=== PATIENT | male | born 1950 | race Two or more races ===

== ENCOUNTER 2021-07-16 12:24 | Outpatient (CLI) | payer MEDICARE, SELFPAY ==
[2021-07-16 13:03] LABS: Basophils Absolute Auto 0.1 K/mm3 (0.0-0.1); Basophils Percent Auto 0.9 % (0.2-1.2); Eosinophils Absolute Auto 0.3 K/mm3 (0-0.3); Eosinophils Percent Auto 3.3 % (0-4.4); Hematocrit 40.4 % (42.0-52.0); Hemoglobin 12.4 g/dL (14.0-18.0); Immature Granulocyte Absolute 0.02 K/mm3 (0.00-0.031); Immature Granulocyte Percent A 0.3 % (0-0.5); Lymphocytes Absolute Auto 3.08 K/mm3 (0.9-3.2); Lymphocytes Percent Auto 39.3 % (18.3-44.2); Mean Corpuscular HGB Conc 30.7 g/dl (32-36); Mean Corpuscular Hemoglobin 25.8 pg (26-34); Mean Platelet Volume 8.9 fl (7.4-10.4); Monocytes Absolute Auto 0.8 K/mm3 (0.1-0.6); Monocytes Percent Auto 9.7 % (2.6-8.5); Neutrophils Absolute Auto 3.6 K/mm3 (1.3-6.7); Neutrophils Percent Auto 46.5 % (45.5-73.1); Platelet Count Result 362 k/mm3 (150-375); Red Blood Count 4.81 M/mm3 (4.6-6.20); Red Cell Distribution Width 15.9 % (11.5-14.5); White Blood Count 7.8 K/mm3 (4.5-10.0)
[2021-07-16 13:24] LABS: Alanine Aminotransferase 22 U/L (4-50); Albumin Level 4.2 g/dL (3.5-5.1); Alkaline Phosphatase 64 U/L (38-126); Anion Gap 6 mmol/L (8-16); Aspartate Amino Transferase 37 U/L (17-59); Bilirubin,Total 0.4 mg/dL (0.2-1.3); Blood Urea Nitrogen 13 mg/dL (9-20); Calcium 10.3 mg/dL (8.4-10.2); Carbon Dioxide 28 mmol/L (22-30); Chloride 106 mmol/L (98-107); Estimated Glomerular Filt Rate > 60; Glucose 51 mg/dL (65-110); Potassium 3.8 mmol/L (3.4-5.0); Sodium 140 mmol/L (137-145)
== END 2021-07-16 12:25 | disposition home or self-care (01) ==
PROVIDERS: PCP Family Medicine; Visit Provider Surgery
DX: K40.90 Unilateral inguinal hernia, without obstruction or gangrene, not specified as recurrent (principal)
CPT/HCPCS: 36415; 80053; 85025

== ENCOUNTER 2021-07-19 00:46 | Day surgery (SDC) | payer MEDICARE, SELFPAY ==
[2021-07-16 08:27] VITALS: BMI 18.5
--- NOTE | 2021-07-16 08:53 | PC.NURSE ---
Report to the Outpatient Waiting Room, entrance under the green pavilion located off [facility], at time __10:00AM on date _07/19/21 . OR Time: __12:00PM . - You and your visitor will be asked a series of questions to screen for COVID 19 for your protection. - A mask is required within the hospital. Preoperative COVID Testing Requirements: BRING COVID VACCINATION DOCUMENTATION No COVID Test needed if: (proof is required; if not received patient will have Rapid Test prior to entry) - Patient has received COVID Vaccine at least 14 days prior to procedure date or - Patient has positive COVID test result within last 90 days of surgery date. COVID Test needed if above criteria is not met If not COVID vaccinated a COVID test must be conducted within 72 hours of surgery and patient is asked to isolate self from time of testing until procedure. You will go to the [facility] for your COVID testing. The [facility] site is located at the corner of [address] [facility]. You will only be called if COVID results are positive and your surgeon may reschedule your elective surgery date. Patients may have clear liquids (water, carbonated beverages, clear teas, apple juice) until 3 hours prior to surgery with a maximum of 20 ounces. - No food from midnight until time of surgery - Infants may have breast milk until 4 hours before surgery, infant formula 6 hours prior to surgery. - Children will be allowed to drink immediately following surgery. If applicable, please bring a bottle or sippy cup to assist with drinking. Juice, water, soda, and popsicles are readily available. For infants on formula, please bring formula the day of surgery. Pacifiers are allowed. Take the following medications with a SIP of water the morning of surgery: ___SYMBICORT INHALER AND ALBUTEROL INHALER NEEDED, GABAPENTIN AND HYDROCODONE NEEDED FOR PAIN Medications to discontinue per physician ___NONE Date to take last dose Please no make-up, nail azeri, hairspray, perfume, deodorant, or body powder the day of surgery. No jewelry (including any body piercings) or valuables the day of surgery, leave them at home. Please take a shower or bath the night before, or the morning of, surgery with an antibacterial soap. Wear comfortable, loose fitting clothing. Children are encouraged to wear pajamas. - Jewelry must be removed prior to entering the operating room. Rings and piercings that are not removed may be cut off. - The hospital will not accept responsibility for valuables. - Please leave all valuables, including medications, at home the day of surgery. TAKE HIBILENS SHOWER MORNING OF SURGERY If you are going home after surgery, a licensed concrete truck driver must drive you home. - NO public transportation without another adult. - We recommend that an adult stay with you for 24 hours following discharge. - We also recommend that you do not drive, make important decision, drink alcoholic beverages, or take any drugs that were not prescribed by your health care provider for at least 24 hours after your discharge time. For Pediatric surgeries, we recommend two adults accompany the child home (only one inside the building at this time). One visitor will be allowed to accompany the patient into the hospital. Patients visitor will be instructed to remain with patient at all times or leave the building. We will allow the visitor to come back to the postoperative area when patient is ready. Follow any additional instructions given to you from your surgeon. Telephone instructions given to __PATIENT and asked if any additional questions and then verbalized understanding. Patient advised to call surgeon office or pre surgery nurse liaison [phone] if any additional questions.
--- NOTE | 2021-07-16 13:49 | PC.NURSE ---
07/16/21 1345 LAB CALLED WITH CRITICAL LOW GLUCOSE LEVEL, DRAWN TODAY AT 1251. GLUCOSE= 51. PT CALLED, HE STATES HE HAD BEEN FASTING FOR BLOOD WORK EXCEPT FOR CUP OF COFFEE AND 1/4 TEASPOON SUGAR THIS AM. HE FELT WEAK SO HE ATE SOME CANDY WHEN HE LEFT THE HOSPITAL. HE WAS EATING A MEAL WHEN I SPOKE TO HIM AND STATES HE FELT FINE. [address] DANISH IBRAHIM'S OFFICE WITH REPORT OF CRITICAL GLUCOSE, SHE RELAYS UNDERSTANDING.
--- NOTE | 2021-07-18 22:02 | PM.HPGS ---
History of Present Illness History of Present Illness Consent: Risks, benefits, and alternatives of an open right inguinal hernia repair with mesh have been discussed and questions answered. Patient agrees to proceed with procedure. Chief complaint: right inguinal hernia Narrative: Ed Sharp is a 71 year old male who presented a few months ago to the office with a right groin bulge to evaluate at the request of Shu Heath NP. He stated his symptoms started about 3 months before that while he was visiting back home to [place]. He states the bulge protrudes most of the day. It reduces when he lays down but pops back out when he stands. It causes a significant amount of pain when it bulges. He is having regular BM's without difficulty. He has alwasy been able to lie down and reduce it. He has a history of heart stent placement about 5 years ago. He states Dr. Goode is his Dragger Out. WE have received cardiac clearance for his air bag buffer. Review of Systems Review of Systems: Const: All systems reviewed & are unremarkable except as noted in HPI and below Denies chills, Reports fatigue, Denies fever(s), Denies headache(s) and Denies weight loss Eyes Denies change in vision and Denies loss of vision ENT: Reports Normal hearing present, Denies headache(s), Reports hearing loss, Denies neck pain and Denies throat swelling Card:Hx of CAD with a history of heart stent placement about 5 years ago. Denies chest pain, Reports chest pain at rest, Reports chest pain with activity and Denies dyspnea Resp Denies cough, Denies dyspnea, Denies wheezing and Reports other (shortness of breath) GI Reports constipation Denies hematuria and Denies difficulty urinating Musculoskeletal: Reports back pain, Denies arthralgias, Denies joint swelling and Denies neck pain Neuro Reports Normal hearing present, Denies headache(s) and Denies loss of vision Aller/Immun Denies throat swelling and Denies wheezing PMFSH Past Medical History Medical History CAD (coronary artery disease) COPD (chronic obstructive pulmonary disease) Emphysema, unspecified Heart disease Stomach ulcer Stroke Thyroid condition Ulcer Surgical History Surgical History History of cholecystectomy History of coronary artery stent placement stent x1 -2019 Previous back surgery Family History Family History Other Heart disease Social History Social History Smoking packs per day: 1 Smoking cigarettes per day: 20.0 Years smoked: 54 Smoking pack-years: 54.00 Smoking status: Current every day smoker Tobacco type: cigarettes Alcohol intake: never Substance use: never Living arrangements: with family Gender identity (if verbalized by the patient): Male Spiritual care concerns: No Meds Home Medications and Allergies Home Medications Medication Instructions Recorded Confirmed Type albuterol sulfate 90 mcg/actuation 1 puff INHALATION BID PRN 04/14/21 07/16/21 History aerosol inhaler budesonide-formoterol HFA 160 1 inh INHALATION ONCE PRN 04/14/21 07/16/21 History mcg-4.5 mcg/actuation aerosol inhaler gabapentin 400 mg capsule 800 mg PO QAM 04/14/21 07/19/21 History hydrocodone 5 mg-acetaminophen 325 1 tablet PO Q8H PRN 04/14/21 07/16/21 History mg tablet nitroglycerin 0.4 mg sublingual 0.4 mg SUBLINGUAL Q5M PRN 04/14/21 07/16/21 History tablet pravastatin 10 mg tablet 10 mg PO DAILY 04/14/21 07/16/21 History aspirin 81 mg PO DAILY 07/16/21 07/16/21 History hydrocodone-acetaminophen 1 tablet PO Q6H PRN #14 tablet 07/19/21 Rx Allergies Allergy/AdvReac Type Severity Reaction Status Date / Time No Known Allergies Allergy Verified 07/19/21 11:22 Exam Narrative: onst Constitutional General:
--- NOTE | 2021-07-19 06:56 | WPDANESEPPF ---
Anes - Initial Pre Proc Eval Procedure: Operation Date: 07/19/21 12:00 Proposed Procedures p Open Right Inguinal Hernia Repair with Mesh - Landen Thomas MD Date/Time: 07/19/21 06:56 Surgeon: Landen Thomas MD Pre Op Diagnosis: right inguinal hernia Patient Data Age: 71 Gender: M Height: 1.68 m Weight: 52 kg Allergies Allergy/AdvReac Type Severity Reaction Status Date / Time No Known Allergies Allergy Verified 07/19/21 11:22 Home Medications Medication Instructions Recorded Confirmed Type albuterol sulfate 90 mcg/actuation 1 puff INHALATION BID PRN 04/14/21 07/16/21 History aerosol inhaler budesonide-formoterol HFA 160 1 inh INHALATION ONCE PRN 04/14/21 07/16/21 History mcg-4.5 mcg/actuation aerosol inhaler gabapentin 400 mg capsule 800 mg PO QAM 04/14/21 07/16/21 History hydrocodone 5 mg-acetaminophen 325 1 tablet PO Q8H PRN 04/14/21 07/16/21 History mg tablet nitroglycerin 0.4 mg sublingual 0.4 mg SUBLINGUAL Q5M PRN 04/14/21 07/16/21 History tablet pravastatin 10 mg tablet 10 mg PO DAILY 04/14/21 07/16/21 History aspirin [Aspir-81] 81 mg PO DAILY 07/16/21 07/16/21 History Patient hx anesthesia problems: none Family hx anesthesia problems: none Results Review: All pre-operative results and documents have been reviewed as part of the pre-operative evaluation. [facility] Past Medical History Medical History CAD (coronary artery disease) COPD (chronic obstructive pulmonary disease) Emphysema, unspecified Heart disease Stomach ulcer Stroke Thyroid condition Ulcer Surgical History Surgical History History of cholecystectomy History of coronary artery stent placement stent x1 -2019 Previous back surgery Family History Family History Other Heart disease Social History Social History Smoking packs per day: 1 Smoking cigarettes per day: 20.0 Years smoked: 54 Smoking pack-years: 54.00 Smoking status: Current every day smoker Tobacco type: cigarettes Alcohol intake: never Substance use: never Living arrangements: with family Gender identity (if verbalized by the patient): Male Spiritual care concerns: No Anes - Eval Final PreProcedure Day of Procedure 07/19/21 06:56 Patient weight: thin Heart: regular rate and rhythm Lungs: clear to auscultation and normal air movement Airway: Mallampati scale class II Neurological: alert and oriented Last oral intake: >/= 8 hours ASA classification: III Emergent: no Anesthetic plan: proceed Anesthesia type and monitoring: general GIVS and standard monitoring Results Review: All pre-operative results and documents have been reviewed as part of the pre-operative evaluation. Informed Consent: The patient's anesthetic plan and its attendant risks and benefits were discussed with the patient/family/POA. Questions were solicited and answers provided to the satisfaction of the patient/family/POA.
[2021-07-19 11:00] VITALS: BP 158/86; PULSE 70; RESP 16; TEMP 36.9; O2SAT 100
[2021-07-19 11:18] LABS: Glucose Point of Care 101 mg/dl (65-105)
[2021-07-19] MEDS: LACTATED RINGERS 1,000 ML 30 ML IV CONT ×2 (11:31→15:35)
[2021-07-19] MEDS: KETOROLAC 15 MG/ML VIAL (*BKC) IV PUSH (11:31)
--- NOTE | 2021-07-19 12:07 | WPDHPUPDATE1 ---
History and Physical Update Update Date/Time: 07/19/21 12:07 History and Physical has been reviewed, including an updated exam of the patient. There are NO changes in the patient's condition. Risks, benefits, and alternatives have been discussed and questions answered. Patient agrees to proceed with procedure.
[2021-07-19] MEDS: ceFAZolin 2 GM/D5W 50 ML 2 GM/50 ML BAG IVPB (12:14)
[2021-07-19] MEDS: BUPIVACAINE HCL 0.5% PF 30 ML VIAL INFILTRATE (12:14)
[2021-07-19] MEDS: LIDO 1%/EPINEPHRINE 1:100,000 50 ML VIAL 15 ML INFILTRATE (12:14)
[2021-07-19 14:52] VITALS: BP 95/60; PULSE 44; RESP 12; O2SAT 95
--- NOTE | 2021-07-19 15:00 | W.PM.PROC2 ---
Procedure Note - Detailed Date of Procedure 07/23/21 Pre-op Diagnosis right inguinal hernia Post-op Diagnosis Other (1. Medium-sized indirect Rt. inguinal hernia 2. Direct Rt. inguinal hernia) Procedure Performed Open inguinal hernia repair with mesh Surgeon Landen Thomas MD Bd Special Education Teacher Kelli GILMORE, OR 1st assist Anesthesia General Indications Patient has had increasing bulging and discomfort in the right inguinal area. Findings Patient had a very thin walled medium size indirect right inguinal hernia containing a portion of a loop of small bowel. He also had significant weakness in the direct space in Hasselach's triangle. Description of Procedure The patient was placed in the supine position on the operating room table. After induction of adequate GIVS anesthesia by [facility] Anesthesia staff, we carefully prepped the entire lower abdomen with chlorhexidine and scrotum and penis with Betadine. One sterile towel was placed underneath the scrotum. Four towels were placed around the right lower quadrant. Following this, a time-out was performed with the surgical team and the patient's surgical procedure and site was confirmed. We then carefully outlined a curvilinear incision in the right groin area and a curvilinear incision was made after introducing a mixture of local anesthetic, using 0.5% Marcaine plain and 1% Xylocaine with epi as both an ilioinguinal nerve block and at the incision site with a 25 gauge needle. Following this, I carefully made the incision, and carried it down through the subcutaneous tissue. Nathaly's fascia was incised and then we identified the external oblique aponeurosis and the external ring. Following this, the same mixture of local anesthetic was infiltrated underneath the external oblique aponeurosis and this was split in the direction of it's fibers with a #15 blade initially and then using Metzenbaum scissors. I then opened the external oblique through the external ring and incised this somewhat posteriorly and superiorly exposing the ilioinguinal nerve. This nerve was carefully preserved laterally and then I carefully and meticulously dissected out the cord structures at the level of the pubic tubercle. I then surrounded these structures at the level of pubic tubercle and placed a [place] drain around them. I then carefully dissected the hernia sac up and off of the cord tissues, and brought it up and out of the incision. We carefully dissected the layers and cremasteric tissues off the hernia sac and then eventually opened the hernia sac. Holding this up with 4 hemostats, I carefully dissected it off the cord structures, being careful to avoid injury to the Pampiniform plexus veins, the spermatic artery and the vas. Once the hernia sac was carefully dissected back to the level of the internal ring, a suture ligation with a pursestring suture of 2-0 silk was used to close the neck of the hernia sac and following this, a 2 - 0 silk tie was placed just below this, tied tight, and then distally the hernia sac was amputated with Bovie cautery. It was then passed off the field for pathologic evaluation. Following this, we took care to recreate an appropriate inguinal canal. This was done by carefully dissecting from the internal ring down to the pubic bone, and dissecting away any cremasteric tissue. A running suture of 0 Prolene was placed in the pubic tubercle and run up to the internal ring, approximating the Transversalis fascia to the ilioinguinal ligament. About [facility] through completing this I notice that perhaps the ilioinguinal nerve was being caught in the suture line. Therefore, I cut that suture freed up the nerve and kept it out of the way. We then put several interrupted sutures of 2-0 Ethibond near the pubic bone and finished a running suture to complete closure of the floor of the inguinal canal. This left only about a fingerbreadth of space next to the cord structures at the
[2021-07-19 15:16] LABS: Glucose Point of Care 96 mg/dl (65-105)
[2021-07-19 15:20] VITALS: BP 116/74; PULSE 48; O2SAT 99
[2021-07-19 15:50] VITALS: BP 115/67; PULSE 45; O2SAT 99
[2021-07-19 16:20] VITALS: BP 129/62; PULSE 47
[2021-07-19 16:50] VITALS: BP 143/65; PULSE 59
== END 2021-07-19 17:05 | disposition home or self-care (01) ==
PROVIDERS: PCP Family Medicine; Visit Provider Surgery
PROC: (CPT 49505; principal; 2021-07-19 12:00)
DX: K40.90 Unilateral inguinal hernia, without obstruction or gangrene, not specified as recurrent (principal); I25.10 Atherosclerotic heart disease of native coronary artery without angina pectoris; J44.9 Chronic obstructive pulmonary disease, unspecified; E21.3 Hyperparathyroidism, unspecified; M54.50 Low back pain, unspecified; G89.29 Other chronic pain; Z95.5 Presence of coronary angioplasty implant and graft; F17.210 Nicotine dependence, cigarettes, uncomplicated; Z79.51 Long term (current) use of inhaled steroids; Z79.82 Long term (current) use of aspirin
CPT/HCPCS: 49505; 82948; 88302; C1781; J0131; J0690; J1885; J2704; J3010; J7120